=== PATIENT | female | born 1960 | race Caucasian/White ===

== ENCOUNTER 2017-08-28 00:16 | Inpatient (IN) | payer OTHER ==
[2017-08-11 13:33] LABS: HEMATOCRIT 40.3 % (37.0-47.0); HEMOGLOBIN 13.8 gm/dL (12.0-15.0); MCH 29.4 pg (26.0-34.0); MCHC 34.3 g/dL (28.0-37.0); MCV 85.6 fL (80.0-100.0); RBC 4.7 mil/uL (4.20-5.00); RDW 12.6 % (10.5-14.5); WBC 5.2 thou/uL (4.0-11.0)
[2017-08-11 13:35] LABS: URINE BILIRUBIN NEGATIVE (Negative); URINE BLOOD NEGATIVE (Negative); URINE COLOR YELLOW; URINE GLUCOSE-RANDOM* NEGATIVE (Negative); URINE KETONES NEGATIVE (Negative); URINE LEUKOCYTES-REFLEX NEGATIVE (Negative); URINE PROTEIN (DIPSTICK) NEGATIVE (Negative); URINE UROBILINOGEN 0.2 E.U./dl (0.2-1.0)
[2017-08-11 13:48] LABS: PROTIME 10.6 Seconds (9.3-11.4)
[2017-08-11 14:05] LABS: CALCIUM 9.4 mg/dL (8.5-10.1); CREATININE 0.8 mg/dL (0.6-1.0); POTASSIUM 4.2 mmol/L (3.5-5.1)
[~2017-08-28] VITALS: Ht 170.2 cm; Wt 99.3 kg
--- NOTE | ~2017-08-28 | O ---
[facility] [place] [address] OPERATIVE REPORT Name: ANN AMARIE KLEIN Room #: 150-5 ADM IN M.R.#: [id number] Admission: 08/28/17 Attend Phys: Alen Ventura MD Discharge: Date of : 60 Report #: [id number] THIS REPORT FOR: //name// CC: CHASIDY Ventura DATE OF SERVICE: 08/28/2017 PREOPERATIVE DIAGNOSIS: Left shoulder degenerative joint disease, severe. POSTOPERATIVE DIAGNOSIS: Left shoulder degenerative joint disease, severe. PROCEDURE: Left total shoulder arthroplasty. SURGEON: Alen Ventura MD COMPLIANCE VICE PRESIDENT: Claire Owens PA-C ANESTHETIC: General. INDICATIONS: See hospital H and P. IMPLANTS UTILIZED: We used a DePuy shoulder system. We used a 44 mm anchor peg glenoid. We used a size 10 standard stem with a 135 degree size 10 proximal body with an eccentric humeral head, 44 x 15. DESCRIPTION OF PROCEDURE: After adequate general anesthesia had been obtained, the patient was placed in the beach chair position. Left shoulder, upper extremity was prepped and draped in the usual meticulous sterile fashion. We made an anterior incision to the shoulder, subQ divided sharply. Deltopectoral groove was identified, developed and deep layers were retracted. We released a little to the proximal pectoralis tendon. Tenodesis was performed of the biceps tendon and it was then transected. We traced the bicipital groove proximally, released the rotator interval. The subscapularis was elevated off of the lesser tuberosity and retracted. We released the capsule from the subscapularis to allow more mobility. The patient had an enormous humeral head spur, which was carefully dissected and removed with an osteotome. The cutting guide was placed on the humerus and the humerus was marked. We then cut the humeral head in 30 degrees of retroversion. The head protector was then put in place. The glenoid was then addressed. We used a lamina skidway worker to distract the joint and the capsule was circumferentially released. We then exposed the glenoid. A guide pin was driven through the drill guide into the central portion of the glenoid. This was then used to guide our reamers, which were used to ream down to a good subchondral bone surface. We then drilled the central peg hole, [address] [address] OPERATIVE REPORT Name: ANNA MARIE KLEIN Room #: 150-5 [facility] IN M.R.#: [id number] Admission: 08/28/17 Attend Phys: Alen Ventura MD Discharge: Date of : 60 Report #: [id number] drilled the three peripheral peg holes and then placed the trial components in position, which had seated in a very stable position. The wound was irrigated copiously. Cement was mixed. Bone graft was placed on the central peg of the glenoid. The peripheral pegs were then cemented and the implant impacted into position. Pressure was placed on the glenoid until the cement fully cured. At this time, attention was redirected to the humerus. It was sequentially reamed to a size 10, which got good chatter. So, we impacted the broach in again 30 degrees of retroversion. We then trialled an eccentric head and it seemed as if with the 15 mm thickness head we got the best stability. We could translate her posteriorly between 25 and 50%, but she self reduced. She could internally rotate and the subscapularis was under good tension. The shoulder was then irrigated copiously. The body and stem were assembled and impacted in position. We did place drill holes for subscapularis repair through the lesser tuberosity. Head was then impacted into position. We then reduced the shoulder, irrigated copiously and then reduced the subscapularis into position and it was secured into position with 5 wire sutures tied over a bone bridge. The rotator interval was partially closed at its insertion site. The patient's rotator cuff tendon tear was about at the level of the interval and the interval was repaired so we did not have to do any further rotator cuff repair. The vancomycin powder was placed deep in the wound, a drain was placed deep in the wound. The deltoid fascia was closed with a running 2-0 Vicryl, subQ closed with 2-0 Monocryl, skin closed with nelly. Sterile compressive dressing applied, sling applied. By: [id number] Alen Ventura MD /nt
[~2017-08-28 00:16] MED LIST: BUPROPION XL300 MG PO; CLARITIN10 MG PO; COLACE100 MG PO; COUMADIN 2 MG TA2 M1 PO; COUMADIN 5 MG TA5 M1 PO; COZAAR 50 MG TA50 M1 PO; DEPAKOTE250 MG PO; ENOXAPARIN40 MG/0.1 SUBQ; HYDROCODON-ACE1 EAC8 PO; LEVOTHYROXINE0.05 MG PO; MS CONTIN15 MG PO; MULTIVITAMINS1 EAC7 PO; MYRBETRIQ25 MG PO; NEURONTIN 300300 M1 PO; PERCOCET 10-321 EACH PO; PREMARIN0.45 MG PO; PREMPRO 0.625-1 EAC1 PO; TOPROL XL100 MG PO; VALPROIC ACID250 MG PO; VITAMIN B-122500 MCG PO; VITAMIN D-32000 UNIT PO; ZOCOR 20 MG TAB20 M1 PO; ZYRTEC10 M5 PO
[2017-08-28 07:30] VITALS: BP 123/88
[2017-08-28 17:31] VITALS: BP 96/61
[2017-08-28 20:00] VITALS: BP 108/69
[2017-08-29] VITALS (8 sets, daily range): BP systolic 106–113; BP diastolic 48–63
[2017-08-29 04:53] LABS: HEMATOCRIT 33.4 % (37.0-47.0); HEMOGLOBIN 11.2 gm/dL (12.0-15.0)
[2017-08-29 10:26] LABS: CALCIUM 8.7 mg/dL (8.5-10.1); CREATININE 0.8 mg/dL (0.6-1.0); POTASSIUM 4.1 mmol/L (3.5-5.1)
[2017-08-29] MEDS ORDERED: COLACE100 MG PO (13:59)
[2017-08-29] MEDS ORDERED: MIRALAX17 GM PO (13:59)
== END 2017-08-29 15:45 | disposition home health service (06) | DRG 483 ==
LOC: PRE 00:16 → 4N 05:14 → TBA 05:14 → PRE 05:36 → 4E 17:02 → 4N 18:16 → ENTRNSPT 08-29 15:38 → EDTRNSPTSTS 08-29 15:41 → 4N 08-29 15:45
PROVIDERS: Orthopaedic Surgery
PROC: 0RRK0JZ Replacement of Left Shoulder Joint with Synthetic Substitute, Open Approach (ICD-10-PCS; principal; 2017-08-28)
DX: M19.012 Primary osteoarthritis, left shoulder (principal); G62.9 Polyneuropathy, unspecified; F31.9 Bipolar disorder, unspecified; I10 Essential (primary) hypertension; K21.9 Gastro-esophageal reflux disease without esophagitis; E78.5 Hyperlipidemia, unspecified; E03.9 Hypothyroidism, unspecified; Z96.652 Presence of left artificial knee joint; Z91.81 History of falling; Z88.2 Allergy status to sulfonamides; Z88.8 Allergy status to other drugs, medicaments and biological substances; Z90.710 Acquired absence of both cervix and uterus; Z87.891 Personal history of nicotine dependence
CPT/HCPCS: 10790; 50010; 50101; 50386; 50417; 50612; 50697; 50733; 50935; 51320; 51412; 51771; 52001; 52138; 53000; 53078; 56524; 56525; 56526; 56527; 56530; 57095; 62110; 62900; 70005